=== PATIENT | male | born 1990 | race Caucasian/White ===

== ENCOUNTER → 2024-09-20 | Outpatient (CLI) | payer BC ==
[~2024-09-20] MED LIST: AMITRIPTYLINE H10 M1 PO; AMITRIPTYLINE H25 M1 PO; FLEXERIL 1010 MG/TAB PO; Iohexol 300 - 10 ML VIAL IV ONE; MOBIC15 MG PO; NORCO 325 MG-51 TAB PO; NOVOLOG 100U100 U/M1; PRAVACHOL 20MG20 MG PO; PRAVACHOL10 MG PO; Triamcinolone 40 MG/ML 1 ML VIAL IJ ONE; VIVLODEX5 MG PO
== END ==
LOC: COL.RAD 12:51
DX: M25.551 Pain in right hip (principal)
CPT/HCPCS: J0665; J3301; Q9967